=== PATIENT | female | born 1945 | race Caucasian/White ===

== ENCOUNTER 2017-12-25 21:50 | Emergency (ER) ==
[2017-12-25 22:05] VITALS: BP 180/100; TEMP 96.8; BMI 32.8
[2017-12-25] MEDS ORDERED: SODIUM CHLORIDE 1,000 ML IV STA (22:09)
[2017-12-25] MEDS ORDERED: ZOFRAN 4 MG/2 ML IVP STA (22:09)
[2017-12-25] MEDS ORDERED: MORPHINE 4 MG/ML SYRINGE IVP STA ×2 (22:09→23:50)
--- NOTE | 2017-12-25 22:49 | CT ---
EXAM: CT scan abdomen pelvis without contrast HISTORY: Abdominal pain COMPARISON: None. FINDINGS: Contiguous axial images obtained through the abdomen pelvis without contrast utilizing 3-m m collimation. Sagittal and coronal reconstructions were imaged and reviewed.. There is a 2 mm nodu le at the left lung base. Fatty infiltration is of throughout the liver. Been prior cholecystectomy . The pancreas spleen and adrenal glands have normal unenhanced CT appearance. The kidneys are morp hologically normal. There is a normal appendix. Atherosclerotic changes are seen involving the aort a without aneurysm formation. There has been a prior hysterectomy. There is diverticulosis without diverticulitis. There is likely partially calcified lymph node within the right pelvis. There is no free fluid or inflammatory changes. Bone windows reveals no evidence of lytic or blastic lesions. IMPRESSION: Fatty liver. Prior cholecystectomy and hysterectomy. Diverticulosis without diverticulitis.
--- NOTE | 2017-12-25 23:54 | ED.PDOC ---
General ED Provider: Dr. ROS CEDILLO-ER Chief Complaint: Abdominal Pain Stated Complaint: im having diarrhea and hurting--william had c difficile before Time Seen by Physician: 21:55 Mode of Arrival: Walk-In Information Source: Patient Exam Limitations: No limitations Nursing and Triage Documentation Reviewed and Agree: Yes Reviewed sepsis parameters & appropriate labs ordered?: Yes System Inflammatory Response Syndrome: Not Applicable Sepsis Protocol: For patient's 13 years and over: Temp is 96.8 and below OR 101 and greater Pulse >90 BPM Resp >20/minute Acutely Altered Mental Status Are patient's symptoms suggestive of a new infection, such as: -Pneumonia -Skin, Soft Tissue -Endocarditis -UTI -Bone, Joint Infection -Implantable Device -Acute Abdominal Infection -Wound Infection -Meningitis -Blood Stream Catheter Infection -Unknown GI Complaint Exam - Vomiting/Diarrhea Complaint/Exam Onset/Duration: 2 days Initial Severity: Mild Current Severity: Mild Character of Vomiting: Reports: Non-bilious Character of Diarrhea: Reports: Watery Aggravating: Reports: Food Associated Signs and Symptoms: Reports: Abdominal pain, Cramping [place] Respirations Present: No Differential Diagnoses: Viral Gastroenteritis, Bacterial Gastroenteritis, UTI Review of Systems - Review Of Systems Constitutional: Reports: No symptoms Eyes: Reports: No symptoms Ears, Nose, Mouth, Throat: Reports: No symptoms Respiratory: Reports: No symptoms Cardiac: Reports: No symptoms GI: Reports: Abdominal pain, Diarrhea, Nausea : Reports: No symptoms Musculoskeletal: Reports: No symptoms Skin: Reports: No symptoms Neurological: Reports: No symptoms Endocrine: Reports: No symptoms Hematologic/Lymphatic: Reports: No symptoms All Other Systems: Reviewed and Negative Past Medical History - Past Medical History Previously Healthy: Yes Endocrine: Reports: Unknown Cardiovascular: Reports: Unknown Respiratory: Reports: Unknown Hematological: Reports: Unknown Gastrointestinal: Reports: Unknown Genitourinary: Reports: Unknown Neuro/Psych: Reports: Unknown Musculoskeletal: Reports: Unknown Cancer: Reports: Unknown Last Menstrual Period: PT HAS HAD A HYSTERECTOMY - Surgical History General Surgical History: Reports: Unknown - Family History Family History: Reports: Unknown - Social History Smoking Status: Never smoker Hx Substance Use: No Alcohol Screening: None - Immunizations Tetanus Shot up to Date: Yes Physical Exam - Physical Exam Appearance: Well-appearing, No pain distress, Well-nourished Eyes: REGINA, EOMI, Conjunctiva clear ENT: Ears normal, Nose normal, Oropharynx normal Neck: Supple Respiratory: Airway patent Cardiovascular: RRR, Pulses normal, No rub, No murmur GI/: Soft, Nontender, No masses, Bowel sounds normal, No Organomegaly Musculoskeletal: Normal strength, ROM intact, No edema, No calf tenderness Skin: Warm Neurological: Sensation intact, Motor intact, Reflexes intact, Cranial nerves intact, Alert, Oriented Psychiatric: Affect appropriate, Mood appropriate Interpretation - Radiology Interpretation Radiology Interpretation By: Radiologist Radiology Results: Negative Exam Interpreted: CT Scan - EKG Interpretation Time of EKG #1: 23:53 Rate: Normal Rhythm: Sinus Ectopy: None [place]: NL Interpretation: nsr Re-Evaluation - Re-Evaluation Time of Re-Evaluation: 23:53 Status: Improved Vital Signs Stable: Yes Pain Level: 0 Appearance: NAD Lungs: Clear Skin: Warm and Dry Neuro: Alert and Oriented X3 CV: RRR Critical Care Note - Critical Care Note Total Time (mins): 0 Course - Course Hematology/Chemistry: 12/25/17 22:32 12/25/17 22:32 Orders, Labs, Meds: Lab Review 12/25/17 12/25/17 12/25/17 22:32 22:32 22:35 WBC 7.89 RBC 4.54 Hgb 13.8 Hct 39.8 MCV 87.7 MCH 30.4 MCHC 34.7 RDW Coeff of Jaclyn 12.7 Plt Count 227 Immature Gran % (Auto) 0.3 Neut % (Auto) 44.2 Lymph % (Auto) 40.2 [place] % (Auto) 11.7 H Eos % (Auto) 2.5 Baso % (Auto) 1.1 Immature Gran # (Auto) 0.0 Neut # (Auto) 3.5 Lymph # (Auto) 3.2 [place] # (Auto) 0.9 Eos # (Auto) 0.2 Baso # (Auto) 0.1 ESR 13 Sodium 140 Potassium 3.8 Chloride 105 Carbon Dioxide 23 Anion Gap 15.8 BUN 16 Creatinine 0.74 Estimated GFR (MDRD) 78.00 BUN/Creatinine Ratio 21.62 Glucose 86 Calcium 9.7 Total Bilirubin 0.2 AST 22 ALT 32 Alkaline Phosphatase 49 L Total Creatine Kinase 129 CK-MB (CK-2) 5.1 H* CK-MB (CK-2) % 3.93000 Troponin I < 0.0100 Total Protein 7.3 Albumin 3.7 Globulin 3.6 Albumin/Globulin Ratio 1.03 Amylase 46 Lipase 38 Urine Color Yellow Urine Clarity Slightly Urine pH 5.5 Ur Specific [place] 1.025 Urine Protein Negative Urine Glucose (UA) Negative Urine Ketones Negative Urine Blood Trace-intact Urine Nitrite Negative Urine Bilirubin Negative Urine Urobilinogen 0.2 Ur Leukocyte Esterase Negative Urine Microscopic RBC 2-5 Urine Microscopic WBC 2-5 Ur Squamous Epith Cells 10-20 Ur Transition Epith Cell 2-5 Urine Bacteria 1+ Orders Category Date Time Status EKG-(ED ONLY) Stat CARDIO 12/25/17 22:08 Ordered ED IV/MEDIPORT/POWERPORT .ONCE EMERGENCY 12/25/17 22:09 Active AMYLASE Stat LAB 12/25/17 22:32 Completed CBC W/ AUTO DIFF Stat LAB 12/25/17 22:32 Completed COMPREHENSIVE METABOLIC PANEL Stat LAB 12/25/17 22:32 Completed CREATINE KINASE Stat LAB 12/25/17 22:32 Completed ESR Stat LAB 12/25/17 22:32 Completed LIPASE Stat LAB 12/25/17 22:32 Completed TROPONIN I Stat LAB 12/25/17 22:32 Completed URINALYSIS C & S IF INDICATED Stat LAB 12/25/17 22:35 Completed URINE CULTURE Stat LAB 12/25/17 22:35 Received 0.9 % Sodium Chloride [Saline Flush] MEDS 12/25/17 22:09 Ordered 1 syr IVF PRN PRN Morphine Sulfate [Morphine 4 mg/ml Syringe] MEDS 12/25/17 22:09 Discontinued 2 mg IVP ONCE STA Morphine Sulfate [Morphine 4 mg/ml Syringe] MEDS 12/25/17 23:50 Stat 2 mg IVP ONCE STA Ondansetron HCl/Pf [Zofran 4 mg/2 ml] MEDS 12/25/17 22:09 Discontinued 4 mg IVP ONCE STA Sodium Chloride 0.9% [Sodium Chloride] 1,000 ml MEDS 12/25/17 22:[address] ABDOMEN/PELVIS WO CONTRAST Stat RADS 12/25/17 22:10 Completed Medications Generic Name Dose Route Start Last Admin Trade Name Freq PRN Reason Stop Dose Admin Morphine Sulfate 2 mg 12/25/17 23:50 Morphine 4 Mg/Ml Syringe IVP 12/25/17 23:51 ONCE STA Sodium Chloride 1 syr 12/25/17 22:09 12/25/17 22:46 Saline Flush IVF 1 syr PRN PRN Administration To flush IV Discontinued Medications Generic Name Dose Route Start Last Admin Trade Name Yun PRN Reason Stop Dose Admin Sodium Chloride 1,000 mls @ 1,000 mls/hr 12/25/17 22:09 12/25/17 22:46 Sodium Chloride IV 12/25/17 23:08 1,000 mls/hr BOLUS STA Administration Morphine Sulfate 2 mg 12/25/17 22:09 12/25/17 22:48 Morphine 4 Mg/Ml Syringe IVP 12/25/17 22:10 2 mg ONCE STA Administration Ondansetron HCl 4 mg 12/25/17 22:09 12/25/17 22:47 Zofran 4 Mg/2 Ml IVP 12/25/17 22:10 4 mg ONCE STA Administration Vital Signs: Temp Pulse Resp BP Pulse Ox 12/25/17 21:51 96.8 F L 62 18 180/100 H 97 Departure - Departure Time of Disposition: 23:53 Disposition: HOME SELF-CARE Discharge Problem: Abdominal pain Diarrhea Qualifiers: Diarrhea type: unspecified type Qualified Code(s): R19.7 - Diarrhea, unspecified Instructions: Acute Diarrhea (ED) Condition: Good Pt referred to PMD for follow-up: Yes IPMP verified?: No Additional Instructions: cipro 500mg bid x 7 days plus flagyl 500mg tid x 7 days--f/u with your pcp Allergies/Adverse Reactions: Allergies doxycycline Adverse Reaction (Verified 12/25/17 22:06) Vomiting Home Medications: Ambulatory Orders Atenolol 50 mg PO DAILY 12/25/17 Cholecalciferol (Vitamin D3) [Vitamin D3] 2,000 unit PO DAILY 12/25/17 Docusate Sodium [Colace] 100 mg PO DAILY 12/25/17 Esomeprazole Magnesium 40 mg PO DAILY 12/25/17 Estradiol 0.5 mg PO EVERY OTHER DAY 12/25/17 Hydrochlorothiazide 50 mg PO DAILY 12/25/17 S-Adenosylmethionine Sul Tosyl [Travis-E] 400 mg PO DAILY 12/25/17 Disposition Discussed With: Patient, Family
== END 2017-12-26 00:20 | disposition home or self-care (01) ==
LOC: ED 21:50
DX: R10.9 Unspecified abdominal pain (principal); R19.7 Diarrhea, unspecified
CPT/HCPCS: 36415; 80053; 81001; 82150; 82550; 82553; 83690; 84484; 85025; 85651; 87086; 93005; 93010; 96361; 96374; 96375; 96376; 99283